=== PATIENT | male | born 1955 | race Caucasian/White ===

== ENCOUNTER 2018-03-02 06:25 | Day surgery (SDC) | payer BC ==
[2018-02-25 13:21] VITALS: BMI 25.8
[~2018-03-02 06:25] MED LIST: DEXAMETHASONE SOD PHOSPHATE 10 MG/ML 1 ML VIAL IV ONE; HYDROmorphone 0.5 MG/0.5 ML SYRINGE IVP PRN; LIDOCAINE 1% 20 ML VIAL (10MG/ML) FOR IV START INTRADERMA PRN; MIDAZOLAM 2 MG/2 ML VIAL IV PRN; ONDANSETRON 4 MG/2 ML VIAL IVP ONE; SCOPOLAMINE 1.5MG/72HR PATCH TRANSDERM ONE; ceFAZolin IN SWFI 2 GM/20 ML SYRINGE IVP ONE
[2018-03-02] MEDS: LACTATED RINGERS 1,000 ML IV SCH ×2 (06:56→06:57)
[2018-03-02] MEDS: HEPARIN SODIUM,PORCINE 5,000 UNIT/ML 1 ML VIAL SQ ONE ×2 (07:05→07:11)
[2018-03-02] MEDS ORDERED: MIDAZOLAM 2 MG/2 ML VIAL IVP ONE (08:16)
--- NOTE | 2018-03-02 08:27 | P.GSHP ---
History of Present Illness H&P Date: 03/02/18 Chief Complaint: Right inguinal hernia This is a 63-year-old male who's developed a right inguinal hernia. Patient rents today for laparoscopic robotic-assisted repair. Past Medical History Past Medical History: GERD/Reflux, Prostate Disorder History of Any Multi-Drug Resistant Organisms: None Reported Past Surgical History: Hernia Repair Additional Past Surgical History / Comment(s): sinus surgery,fatty tumor removed rt breast, Past Anesthesia/Blood Transfusion Reactions: No Reported Reaction Smoking Status: Former smoker - Past Family History Mother Family Medical History: Pulmonary Embolus Medications and Allergies Home Medications Medication Instructions Recorded Confirmed Type Aspirin [Adult Low Dose Aspirin EC] 81 mg PO DAILY 02/25/18 02/25/18 History Atorvastatin Calcium [Lipitor] 40 mg PO DAILY 02/25/18 02/25/18 History DULoxetine HCL [Cymbalta] 60 mg PO DAILY 02/25/18 02/25/18 History Multivitamins, Thera [Multivitamin 1 tab PO DAILY 02/25/18 02/25/18 History (formulary)] Ranitidine HCl [Zantac] 150 mg PO HS 02/25/18 02/25/18 History Tamsulosin [Flomax] 0.4 mg PO DAILY 02/25/18 02/25/18 History Allergies Allergy/AdvReac Type Severity Reaction Status Date / Time No Known Allergies Allergy Verified 02/25/18 13:07 Surgical - Exam Vital Signs Temp Pulse Resp BP Pulse Ox 98.1 F 86 16 115/68 98 03/02/18 06:57 03/02/18 06:57 03/02/18 06:57 03/02/18 06:57 03/02/18 06:57 - General well developed, no distress - Eyes PERRL - ENT normal pinna - Neck no masses - Respiratory normal expansion - Cardiovascular Rhythm: regular - Abdomen Right inguinal hernia Abdomen: soft, non tender Assessment and Plan Assessment: Right inguinal hernia. We'll perform laparoscopic robotic-assisted repair.
[2018-03-02] MEDS ORDERED: KETOROLAC 30 MG/ML 1 ML VIAL ONE (08:34)
[2018-03-02] MEDS ORDERED: PROPOFOL 10 MG/ML 20 ML VIAL IV ONE (08:34)
[2018-03-02] MEDS ORDERED: fentaNYL (PF) 50 MCG/ML 2 ML AMP ONE (08:34)
[2018-03-02] MEDS ORDERED: HYDROmorphone (PF) 1 MG/ML ONE (08:34)
[2018-03-02] MEDS ORDERED: ePHEDrine SULFATE/0.9% NACL/PF 50 MG/5 ML SYRINGE IV ONE (08:34)
[2018-03-02] MEDS ORDERED: GLYCOPYRROLATE 0.2 MG/ML 2 ML VIAL ONE (08:34)
[2018-03-02] MEDS ORDERED: LIDOCAINE 1% INJ 10MG/ML (20 ML MDV) ONE (08:34)
[2018-03-02] MEDS ORDERED: MIDAZOLAM 2 MG/2 ML VIAL ONE (08:34)
[2018-03-02] MEDS ORDERED: ROCURONIUM BROMIDE 10 MG/ML 10 ML VIAL IV ONE (08:34)
[2018-03-02] MEDS ORDERED: ROPIVACAINE 5 MG/ML 30 ML VIAL ONE (08:34)
[2018-03-02] MEDS ORDERED: NEOSTIGMINE 1 MG/ML 10 ML VIAL ONE (08:34)
[2018-03-02] MEDS ORDERED: BUPIVACAIN-EPI 0.25%-1:200,000 30 ML VIAL SQ ONE (09:12)
--- NOTE | 2018-03-02 10:12 | P.ONQ ---
Anesthesiology Proc Note - PNB - Peripheral Nerve Block Performed Right Transversus Abdominis Single Time Out Performed: Yes Procedure Start Time: 08:14 Procedure Stop Time: 08:18 Indication: Acute Post-Operative Pain, Analgesia, Requested by physician Sedation Type: Sedate with meaningful contact maintained Preparation: Sterile Prep Position: Supine Catheter: None Needle Types: Rosa Needle Size: 100mm (4") Needle Gauge: 21 Technique: Ultrasound Injectate: 0.5% Ropivacaine (see comment for volume) Blood Aspirated: No Pain Paresthesia on Injection Noted: No Resistance on Injection: Normal Events: Uneventful and Well Tolerated (20 ml Ropi)
[2018-03-02 10:21] VITALS: TEMP 97.8
--- NOTE | 2018-03-02 10:44 | P.OP ---
Date of Procedure: 03/02/18 Preoperative Diagnosis: Recurrent right inguinal hernia Postoperative Diagnosis: Recurrent right inguinal hernia Left inguinal hernia Procedure(s) Performed: Laparoscopic robotic-assisted repair of recurrent right inguinal hernia Left inguinal hernia Excision of left cord lipoma Anesthesia: TITO Surgeon: Eugenio Virk Estimated Blood Loss (ml): 5 Pathology: other (Cord lipoma) Condition: stable Disposition: PACU Description of Procedure: The patient was placed on the operating table in the supine position. The patient received general anesthesia. The patient's abdomen was prepped and draped in usual sterile fashion. The skin was anesthetized 1% local Xylocaine at the incision sites. Using an 11 blade a skin incision was made at the umbilicus. The fascia was grasped with a [place] and then the peritoneal cavity was entered with the Veress needle. Position of the Veress needle was confirmed with a positive drop test. After adequate insufflation a 5 mm trocar was placed into the peritoneal cavity. The Laparoscope was placed the peritoneal cavity. And a robotic 8 mm trocar was placed in the right lateral position and then another 8 mm robotic trochars placed in the left lateral position. The original 5 mm trocar was exchanged for a 12 mm trocar. The patient was placed in reverse Trendelenburg and then the patient was docked to the robot. The inguinal canals were visualized. The patient had a recurrent right inguinal hernia there is also a left and one hernia. The right angle hernias repaired first. Next the peritoneum over top of the hernia was incised and then using blunt and sharp dissection and electrocautery the hernia sac was dissected free from the floor of the inguinal canal. The hernia sac was completely reduced into the peritoneal cavity. And then using the Pro content writer mesh the hernia was repaired. The peritoneum was then sutured with 2-0V lock suture. Next the left inguinal hernia was repaired in identical fashion. There was a cord lipoma excised. The patient was then undocked the robot. The needles and cord lipoma was withdrawn from the peritoneal cavity. The umbilical trocar site was closed with 0 Ethibond suture. The skin was closed interrupted 3-0 Monocryl suture. Dermabond dressing was applied. Patient was sent to recovery in stable condition.
[2018-03-02 11:48] VITALS: RESP 18
[2018-03-02 13:29] VITALS: BP 124/77; PULSE 63
== END 2018-03-02 14:08 | disposition home or self-care (01) ==
LOC: OR 06:25
PROVIDERS: ATTEND Surgery
DX: K40.91 Unilateral inguinal hernia, without obstruction or gangrene, recurrent (principal); K40.90 Unilateral inguinal hernia, without obstruction or gangrene, not specified as recurrent; K21.9 Gastro-esophageal reflux disease without esophagitis; N42.9 Disorder of prostate, unspecified; Z87.891 Personal history of nicotine dependence; Z79.82 Long term (current) use of aspirin; Z79.899 Other long term (current) drug therapy; E78.5 Hyperlipidemia, unspecified; N40.0 Benign prostatic hyperplasia without lower urinary tract symptoms; F39 Unspecified mood [affective] disorder
CPT/HCPCS: 49650; 49651; S2900; 64486; 88304

== ENCOUNTER 2020-07-04 09:17 | Day surgery (SDC) | payer MEDICARE, OTHER ==
[2020-07-02 15:20] VITALS: BMI 25.8
[2020-07-04] MEDS ORDERED: LIDOCAINE 1% (10MG/ML) FOR IV START INTRADERMA ONE (09:37)
[2020-07-04] MEDS: LACTATED RINGERS 1,000 ML IV SCH ×2 (09:37→09:45)
[2020-07-04 09:54] VITALS: TEMP 97
[2020-07-04] MEDS ORDERED: PROPOFOL 10 MG/ML 20 ML VIAL IV ONE (10:55)
[2020-07-04] MEDS ORDERED: GLYCOPYRROLATE 0.2 MG/ML 2 ML VIAL ONE (10:55)
--- NOTE | 2020-07-04 10:59 | P.GSHP ---
History of Present Illness H&P Date: 07/04/20 Chief Complaint: Screening colonoscopy This a 65-year-old male who presents today for screening colonoscopy. Patient denies a significant GI complaints. Past Medical History Past Medical History: GERD/Reflux, Hyperlipidemia, Prostate Disorder Additional Past Medical History / Comment(s): hx. colon polyps History of Any Multi-Drug Resistant Organisms: None Reported Past Surgical History: Hernia Repair Additional Past Surgical History / Comment(s): sinus surgery,fatty tumor removed rt breast, hernia x2 Past Anesthesia/Blood Transfusion Reactions: No Reported Reaction Past Psychological History: Depression Smoking Status: Former smoker Past Alcohol Use History: Occasional Additional Past Alcohol Use History / Comment(s): smoked 10 years 1 pack/wk quit 1999 Past Drug Use History: None Reported - Past Family History Mother Family Medical History: Pulmonary Embolus Medications and Allergies Home Medications Medication Instructions Recorded Confirmed Type Aspirin [Adult Low Dose Aspirin EC] 81 mg PO DAILY 02/25/18 07/02/20 History Atorvastatin Calcium [Lipitor] 40 mg PO DAILY 02/25/18 07/02/20 History DULoxetine HCL [Cymbalta] 60 mg PO DAILY 02/25/18 07/02/20 History Multivitamins, Thera [Multivitamin 1 tab PO DAILY 02/25/18 07/02/20 History (formulary)] Tamsulosin [Flomax] 0.4 mg PO DAILY 02/25/18 07/02/20 History Cholecalciferol [Vitamin D3 (25 25 mcg PO DAILY 07/02/20 07/02/20 History Mcg = 1000 Iu)] Omeprazole [PriLOSEC] 20 mg PO [id number] 07/02/20 07/02/20 History Allergies Allergy/AdvReac Type Severity Reaction Status Date / Time No Known Allergies Allergy Verified 07/02/20 15:12 Surgical - Exam Vital Signs Temp Pulse Resp BP Pulse Ox 97 F L 92 20 133/83 97 07/04/20 09:52 07/04/20 09:52 07/04/20 09:52 07/04/20 09:52 07/04/20 09:52 - General well developed, well nourished, no distress - Eyes PERRL - ENT normal pinna - Neck no masses - Respiratory normal expansion - Cardiovascular Rhythm: regular - Abdomen Abdomen: soft, non tender Assessment and Plan Assessment: We'll perform screening colonoscopy
--- NOTE | 2020-07-04 11:12 | P.OP ---
Date of Procedure: 07/04/20 Preoperative Diagnosis: Screening colonoscopy Postoperative Diagnosis: Diverticulosis Procedure(s) Performed: Colonoscopy Anesthesia: MAC Surgeon: Eugenio Virk Pathology: none sent Condition: stable Disposition: PACU Description of Procedure: The patient's placed on the endoscopy table in the lateral position. He received IV sedation. Digital rectal exam was performed which revealed no abnormalities. The flexible colonoscope was then placed patient anus and passed throughout the entire colon. The ileocecal valve was visualized. The cecum, ascending and transverse colon appeared normal. In the descending and sigmoid colon is mild diverticular changes. The scope was then brought back the rectum this appeared normal. Scope was withdrawn for patient.
[2020-07-04 11:13] VITALS: RESP 16
[2020-07-04 11:26] VITALS: BP 118/82; PULSE 77
== END 2020-07-04 11:52 | disposition home or self-care (01) ==
LOC: ORWHC2ENDO 09:17
PROVIDERS: ATTEND Surgery
DX: Z12.11 Encounter for screening for malignant neoplasm of colon (principal); K57.30 Diverticulosis of large intestine without perforation or abscess without bleeding; Z86.010 Personal history of colon polyps; E78.5 Hyperlipidemia, unspecified; N42.9 Disorder of prostate, unspecified; K21.9 Gastro-esophageal reflux disease without esophagitis; Z79.82 Long term (current) use of aspirin; Z79.899 Other long term (current) drug therapy; Z87.891 Personal history of nicotine dependence; Z98.890 Other specified postprocedural states; Z82.49 Family history of ischemic heart disease and other diseases of the circulatory system
CPT/HCPCS: J2704; G0105; 45378